=== PATIENT | female | born 1950 | race Caucasian/White ===

== ENCOUNTER → 2017-04-02 | Outpatient (CLI) | payer MEDICARE, OTHER ==
[~2017-04-02] MED LIST: ATEN-51 PO; ATOR20TA38 PO; COU1 PO; LOSA1TAB9 PO; OXYC-481 PO; RANI150T5 PO; RIVA15TA PO
--- NOTE | 2017-04-02 17:17 | RADRPT ---
PROCEDURE: LEFT KNEE X-RAY CLINICAL INDICATION: PAIN TECHNIQUE: AP, lateral, and oblique views of the knee were obtained. COMPARISON: Plain radiographs of the left knee from 08/18/2016 FINDINGS: No acute fracture or dislocation is seen. There is normal mineralization. There is a total left knee prosthesis in near anatomic alignment without evidence of hardware loosen ing. There is no joint effusion. There is no significant soft tissue swelling. IMPRESSION: Redemonstration of a total left knee prosthesis in near anatomic alignment without evidence of hardw are loosening. RPTAT: EE Physician Carroll Date Time Electronically viewed and signed by Physician Carroll on 04/02/2017 17:16 /
== END | disposition home or self-care (01) ==
LOC: HKI 08:50
PROVIDERS: ATTEND Orthopaedic Surgery
DX: M25.562 Pain in left knee (principal); Z96.651 Presence of right artificial knee joint
CPT/HCPCS: 73562; G0463